=== PATIENT | male | born 1970 | race Two or more races ===

== ENCOUNTER 2018-12-14 14:39 | Emergency (ER) | payer SELFPAY ==
[~2018-12-14] VITALS: Ht 172.7 cm; Wt 95.3 kg
[2018-12-14 16:32] VITALS: BP 114/76
[2018-12-14] MEDS ORDERED: HYDROcodone-ACET 10/325MG TAB PO ONE (17:45)
== END 2018-12-14 18:19 | disposition home or self-care (01) ==
LOC: EDBD 14:39 → ER 14:44
DX: S82.891A Other fracture of right lower leg, initial encounter for closed fracture (principal); S82.831A Other fracture of upper and lower end of right fibula, initial encounter for closed fracture; V28.0XXA Motorcycle driver injured in noncollision transport accident in nontraffic accident, initial encounter; Y93.89 Activity, other specified; Y99.8 Other external cause status; Y92.89 Other specified places as the place of occurrence of the external cause
CPT/HCPCS: 29515; 71045; 73562; 73610; 93005